=== PATIENT | female | born 1955 | race Two or more races ===

== ENCOUNTER 2021-01-21 09:52 | Outpatient (AMBR) | payer MEDICARE, MEDICAID, SELFPAY ==
--- NOTE | 2020-12-31 08:19 | PT.OIERPT ---
PT OP Initial Eval Patient Information Visit Reasons: low back pain Medical Diagnosis: M54.5 Treatment Dx #1: LBp Date of Onset: 5 yrs Initial Assessment Subjective Pt is 65 yr old nepali speaking female who reports long Hx of LBP on the R side but pain going down the L LE. Increased pain with HH chores such as sweeping and mopping and bending. She isn't working at this time and if she walks more than 10 minutes and she can go shopping if she walks slowly. PMH: CVA x3 yrs, HTN, DM, allergies Imaging: MRI of L/s L5-S1, L4-L5 5 mm central lumbar disc bulges Objective Trunk ArOM: B SB 50% with pain L>R Extension: 20% with pain around L2-3 centrally Flexion: 14 from floor with LBP B rotation: 60% L SLR: 50 deg with posterior knee neural tension, LBP LE strength: B hamstrings: 4-/5 Quads 4-/5 Hip abd/add 4-/5 AZUCENA's: hip tightness TTP: moderate paraspinals L4-5 on R Neuro: L SLR: positive Assessment Pt presents with trunk flexion sensitivity and overlying myofascial pain and spasming around L4-5 on R side. Pt has lumbar extensor atrophy and pain with prolonged standing. These findings are consistent with lower lumbar disc bulges. Pt requires skilled therapy in order to decrease pain and improve standing tolerance and has fair rehab potential. Short Term and Group Home Goals 1. Ind with HEP 2. Improved standing tolerance to 30 minutes with <=4/10 LBP 3. Pt will improve ambulatory distance to 2 city blocks 4. Pt will squat x15 with lumbar lordosis and no increase in LBP Treatment Plan 1. Manual therapy 2. Therex 3. Modalities as indicated, moist heat, ice, estim, mechanical traction Frequency and Duration 2x a week for 6 weeks Certification Dates: 12/31/20 to 03/31/21 Office Procedures PT Treatments PT Date of Service: 12/31/20 OP PT Eval Mod Complex 30 minutes: Yes
--- NOTE | 2021-01-04 13:01 | PTNOTE_ITS ---
PT Outpatient Daily Note Date of Service: 01/04/21 OP Daily Note Visit Reasons: low back pain Outpatient Physical Therapy Treatment Date: 01/04/21 Subjective: Pt points to the R side of the L/s as site of pain Objective: See F/S for therex MT: StM L/s paraspinals x10' Mechanical traction L/s x7' at 35 lbs Assessment: Moderate tissue irritability with manual therapy and transitional movements. Pain with lifting L LE in supine. Plan: continue per POC Office Procedures PT Treatments PT Date of Service: 01/04/21 Therapeutic Exercise 15 minutes: Yes Manual Director Of Retention 15 minutes: Yes PT Treatments PT Date of Service: 12/31/20 OP PT Eval Mod Complex 30 minutes: Yes
--- NOTE | 2021-01-06 13:41 | PT.ODAYNRPT ---
PT Outpatient Daily Note Date of Service: 01/06/21 OP Daily Note Pediatric or Adult Patient: Adult PT >13 Visit Reasons: low back pain Outpatient Physical Therapy Treatment Date: 01/06/21 Subjective: Pt points to the R side of the L/s as site of pain and says the LE goes numb Objective: See F/S for therex MT: StM L/s paraspinals x10' Mechanical traction L/s x7' at 35 lbs Assessment: Moderate tissue irritability with manual therapy and transitional movements. Pain with lifting L LE in supine. Plan: continue per POC Office Procedures PT Treatments PT Date of Service: 01/04/21 Therapeutic Exercise 15 minutes: Yes Manual Manager [employer] 15 minutes: Yes PT Treatments PT Date of Service: 12/31/20 OP PT Eval Mod Complex 30 minutes: Yes PT Treatments PT Date of Service: 01/06/21 Therapeutic Exercise 15 minutes: Yes Manual Manager [employer] 15 minutes: Yes
--- NOTE | 2021-01-11 10:03 | PTNOTE_ITS ---
PT Outpatient Daily Note Date of Service: 01/11/21 OP Daily Note Visit Reasons: low back pain Outpatient Physical Therapy Treatment Date: 01/11/21 Subjective: Pt reports pain on LB and down the L side of her leg today. Pt reports pain level 6/10. Objective: See flow chart for therex. MT: STM w/ graston L/S x 10mins. Mechanical Traction: L/S 40lbs x 7mins. Assessment: Moderate Tissue Irritability to R side of LB w/ MT. Pt had good response to MT and mechanical traction. Pt feeling discomfort w/ SB rolls to L LE. Pt tolerated stretches well w/ out complaints. Plan: Cont POC per PT. Length of Time (minutes) of Treatment: 30 Minutes Office Procedures PT Treatments PT Date of Service: 01/04/21 Therapeutic Exercise 15 minutes: Yes Manual Mental Retardation Nurse 15 minutes: Yes PT Treatments PT Date of Service: 12/31/20 OP PT Eval Mod Complex 30 minutes: Yes PT Treatments PT Date of Service: 01/06/21 Therapeutic Exercise 15 minutes: Yes Manual Mental Retardation Nurse 15 minutes: Yes PT Treatments PT Date of Service: 01/11/21 Therapeutic Exercise 15 minutes: Yes Manual Mental Retardation Nurse 15 minutes: Yes
--- NOTE | 2021-01-14 10:58 | PT.ODAYNRPT ---
PT Outpatient Daily Note Date of Service: 01/14/2021 OP Daily Note Visit Reasons: low back pain Outpatient Physical Therapy Treatment Date: 01/14/21 Subjective: pt came in with back pain. Objective: see flow sheet. Assessment: pt needed assistance with bed mobility from supine to sit. she is able to perform her exercises but with limited mobility. pt feels more comfortable with the HOB elevated due to SOB. pt finished off with traction. pt on traction for L/s for a few mins and she denied increase in back pain. Plan: continue POC per PT. Length of Time (minutes) of Treatment: 30 Minutes Office Procedures PT Treatments PT Date of Service: 01/04/21 Therapeutic Exercise 15 minutes: Yes Manual Dial Polisher 15 minutes: Yes PT Treatments PT Date of Service: 12/31/20 OP PT Eval Mod Complex 30 minutes: Yes PT Treatments PT Date of Service: 01/06/21 Therapeutic Exercise 15 minutes: Yes Manual Dial Polisher 15 minutes: Yes PT Treatments PT Date of Service: 01/11/21 Therapeutic Exercise 15 minutes: Yes Manual Dial Polisher 15 minutes: Yes PT Treatments PT Date of Service: 01/14/21 Traction Mechanical: Yes Therapeutic Exercise 15 minutes: Yes
--- NOTE | 2021-01-18 10:30 | PT.ODAYNRPT ---
PT Outpatient Daily Note Date of Service: 01/18/21 OP Daily Note Visit Reasons: low back pain Outpatient Physical Therapy Treatment Date: 01/18/21 Subjective: Pt sri lankan speaking reports she was having pain from the traction from previous visit and points at her hip flexors. Objective: See flow chart for therex. MT: STM w/ graston x 10 mins. Assessment: Pt tolerated MT w/ good response to L/S. Muscle tension R>L to lumbar paraspinals. Pt able to perform CIRILO for 10 mins during MT w/out complaints. Plan: Cont POC per PT. Length of Time (minutes) of Treatment: 30 Minutes Office Procedures PT Treatments PT Date of Service: 01/04/21 Therapeutic Exercise 15 minutes: Yes Manual Membership Coordinator 15 minutes: Yes PT Treatments PT Date of Service: 12/31/20 OP PT Eval Mod Complex 30 minutes: Yes PT Treatments PT Date of Service: 01/06/21 Therapeutic Exercise 15 minutes: Yes Manual Membership Coordinator 15 minutes: Yes PT Treatments PT Date of Service: 01/11/21 Therapeutic Exercise 15 minutes: Yes Manual Membership Coordinator 15 minutes: Yes PT Treatments PT Date of Service: 01/14/21 Traction Mechanical: Yes Therapeutic Exercise 15 minutes: Yes PT Treatments PT Date of Service: 01/18/21 Therapeutic Exercise 30 minutes: Yes
--- NOTE | 2021-01-21 11:29 | PT.ODAYNRPT ---
PT Outpatient Daily Note Date of Service: 01/21/2021 OP Daily Note Visit Reasons: low back pain Outpatient Physical Therapy Treatment Date: 01/21/21 Subjective: pt states her back was sore for days after L/S traction and refuses to use it again. Objective: see flow sheet. Assessment: pt completed ther ex while on heat. she did have limited ROM during her LTR until I assisted with increasing her ROM. she was able to tolerate the increase in motion as she was cued to relax and when she did she improved her form. Plan: continue POC per PT. Length of Time (minutes) of Treatment: 30 Minutes Office Procedures PT Treatments PT Date of Service: 01/04/21 Therapeutic Exercise 15 minutes: Yes Manual Garbage Truck Driver 15 minutes: Yes PT Treatments PT Date of Service: 12/31/20 OP PT Eval Mod Complex 30 minutes: Yes PT Treatments PT Date of Service: 01/06/21 Therapeutic Exercise 15 minutes: Yes Manual Garbage Truck Driver 15 minutes: Yes PT Treatments PT Date of Service: 01/11/21 Therapeutic Exercise 15 minutes: Yes Manual Garbage Truck Driver 15 minutes: Yes PT Treatments PT Date of Service: 01/14/21 Traction Mechanical: Yes Therapeutic Exercise 15 minutes: Yes PT Treatments PT Date of Service: 01/18/21 Therapeutic Exercise 30 minutes: Yes PT Treatments PT Date of Service: 01/21/21 Therapeutic Exercise 30 minutes: Yes
== END 2021-01-24 23:59 | disposition home or self-care (01) ==
PROVIDERS: PCP Family Medicine; Referring Provider Family Medicine; Visit Provider Nurse Practitioner Family
DX: M54.50 Low back pain, unspecified (principal); M62.830 Muscle spasm of back; I10 Essential (primary) hypertension; E11.9 Type 2 diabetes mellitus without complications
CPT/HCPCS: 97012; 97110; 97140; 97162

== ENCOUNTER → 2024-02-14 | Outpatient (CLI) | payer MEDICARE, MEDICAID, SELFPAY ==
[2024-02-14 08:30] LABS: Basophils % (Auto) 0 % (0-2.5); Eosinophils # (Auto) 0.1 Thou/mm3 (0.0-0.5); Eosinophils % (Auto) 1 % (0-10); Hematocrit 39.8 % (36.0-46.0); Hemoglobin 13.2 g/dL (12.0-16.0); Immature Granulocytes % (Auto) 0 % (0-0); Immature Granulocytes Auto 0.01 Thou/mm3 (0.00-0.00); Lymphocytes # (Auto) 1.2 Thou/mm3 (1.0-4.8); Lymphocytes % (Auto) 20 % (10-50); Mean Corpuscular HGB Conc 33.2 g/dl (31.0-37.0); Mean Corpuscular Hemoglobin 30.5 pg (25.0-35.0); Mean Corpuscular Volume 92 fL (80-100); Monocytes # (Auto) 0.6 Thou/mm3 (0.0-0.8); Monocytes % (Auto) 10 % (0-12); Neutrophils # (Auto) 4.1 Thou/mm3 (1.8-7.7); Neutrophils % (Auto) 68 % (37-80); Nucleated Red Blood Cell % 0 /100 WBC (0); Platelet Count 222 Thou/mm3 (140-440); Red Blood Count 4.33 Miln/mm3 (4.00-5.20)
[2024-02-14 08:46] LABS: B-Type Natriuretic Peptide 366 pg/mL (0-100)
[2024-02-14 08:55] LABS: Alanine Aminotransferase 26 U/L (10-49); Albumin, Serum 3.9 gm/dL (3.4-4.8); Alkaline Phosphatase 87 U/L (46-116); Anion Gap 5 (7-16); Aspartate Amino Transferase 26 U/L (0-34); BUN/Creatinine Ratio 21 Ratio (12-20); Bilirubin,Direct 0.3 mg/dL (0.0-0.3); Bilirubin,Total 0.7 mg/dL (0.3-1.2); Blood Urea Nitrogen 15 mg/dL (9-23); Calcium 9.4 mg/dL (8.3-10.6); Carbon Dioxide 35.1 mMol/L (20.0-31.0); Cardiac Risk Estimate 2.9 RATIO (3.7-5.6); Chloride 101 mMol/L (98-107); Cholesterol 117 mg/dL (132-200); Creatinine (Component) 0.7 mg/dL (0.6-1.3); Glucose 140 mg/dL (74-106); HDL Cholesterol 41 mg/dL (40-60); LDL Cholesterol,Calculated 59 mg/dL (0-130); Osmolality,Calculated 284 (275-295); Phosphorous 4.2 mg/dL (2.4-5.1); Potassium 3.8 mMol/L (3.4-5.1); Sodium 141 mMol/L (136-145); Total Protein 6.7 gm/dL (5.7-8.2); Triglycerides 86 mg/dL (30-150); eGFR > 60 See Note
== END | disposition home or self-care (01) ==
PROVIDERS: PCP Family Medicine; Referring Provider Internal Medicine Cardiovascular Disease; Visit Provider Internal Medicine Cardiovascular Disease
DX: I11.0 Hypertensive heart disease with heart failure (principal); I50.9 Heart failure, unspecified; E78.5 Hyperlipidemia, unspecified
CPT/HCPCS: 36415; 80048; 80061; 80076; 83880; 84100; 85025

== ENCOUNTER → 2024-03-21 | Outpatient (CLI) | payer MEDICARE, MEDICAID, SELFPAY ==
--- NOTE | 2024-03-21 16:15 | XR_ITS ---
Examination: Retroperitoneal ultrasound, complete Technique: Multiple high resolution grayscale images of the retroperitoneum obtained, including kidneys and bladder. Exam date and time:March 21, 2024 1629 hours INDICATIONS: Diagnosis chronic kidney disease stage II FINDINGS: Right kidney 10.7 x 4.5 x 5.2 cm cortex 1.9 cm Left kidney 10.2 x 5.0 x 5.3 cm renal cortex 1.9 cm Moderate bilateral renal parenchymal scar formation No hydronephrosis No bladder mass or bladder calculi Bladder prevoid volume 165 cc postvoid volume 20 cc IMPRESSION: Moderate bilateral renal parenchymal scar formation No hydronephrosis
[2024-03-21 17:39] LABS: Basophils % (Auto) 0 % (0-2.5); Eosinophils # (Auto) 0.1 Thou/mm3 (0.0-0.5); Eosinophils % (Auto) 1 % (0-10); Hematocrit 38.3 % (36.0-46.0); Hemoglobin 12.7 g/dL (12.0-16.0); Immature Granulocytes % (Auto) 0 % (0-0); Immature Granulocytes Auto 0.02 Thou/mm3 (0.00-0.00); Lymphocytes # (Auto) 1.4 Thou/mm3 (1.0-4.8); Lymphocytes % (Auto) 19 % (10-50); Mean Corpuscular HGB Conc 33.2 g/dl (31.0-37.0); Mean Corpuscular Hemoglobin 31.4 pg (25.0-35.0); Mean Corpuscular Volume 95 fL (80-100); Monocytes # (Auto) 0.8 Thou/mm3 (0.0-0.8); Monocytes % (Auto) 10 % (0-12); Neutrophils # (Auto) 5.2 Thou/mm3 (1.8-7.7); Neutrophils % (Auto) 69 % (37-80); Nucleated Red Blood Cell % 0 /100 WBC (0); Platelet Count 231 Thou/mm3 (140-440); Red Blood Count 4.04 Miln/mm3 (4.00-5.20); White Blood Count 7.6 Thou/mm3 (3.6-11.0)
[2024-03-21 17:55] LABS: Parathyroid Hormone Intact 109.6 pg/ml (18.5-88.0)
[2024-03-21 17:56] LABS: Alanine Aminotransferase 30 U/L (10-49); Albumin, Serum 4.1 gm/dL (3.4-4.8); Albumin/Globulin Ratio 1.5 (1.2-2.2); Alkaline Phosphatase 85 U/L (46-116); Anion Gap 4 (7-16); Aspartate Amino Transferase 29 U/L (0-34); BUN/Creatinine Ratio 44 Ratio (12-20); Bilirubin,Total 0.7 mg/dL (0.3-1.2); Blood Urea Nitrogen 31 mg/dL (9-23); Calcium 9.3 mg/dL (8.3-10.6); Calcium (Corrected) 9.3 mg/dL (8.5-10.1); Carbon Dioxide 36.9 mMol/L (20.0-31.0); Chloride 97 mMol/L (98-107); Creatinine (Component) 0.7 mg/dL (0.6-1.3); Globulin 2.7 gm/dL (2.3-3.5); Glucose 109 mg/dL (74-106); Magnesium 2.2 mg/dL (1.6-2.6); Osmolality,Calculated 283 (275-295); Phosphorous 3.9 mg/dL (2.4-5.1); Potassium 3.9 mMol/L (3.4-5.1); Sodium 138 mMol/L (136-145); Total Protein 6.8 gm/dL (5.7-8.2); Uric Acid 4.2 mg/dL (3.1-7.8); eGFR > 60 See Note
[2024-03-21 17:59] LABS: Creatinine MALB Rnd Ur < 13 mg/dL (30-125); Microalbumin, Random Urine < 3 mg/L (0-300)
[2024-03-21 17:59] LABS: Vitamin B12 661 pg/mL (211-911); Vitamin D 25 Hydroxy Total 52.8 ng/mL (7.3-40.2)
[2024-03-21 18:04] LABS: Ferritin 77 ng/mL (7.3-270.7); Total Iron Binding Capacity 296 mcg/dL (250-425)
[2024-03-21 23:00] LABS: Iron 56 mcg/dL (50-170); Percent Iron Saturation 18 % (20-55); Unsaturated Iron Binding 240 (225-295)
== END | disposition home or self-care (01) ==
LOC: CDIM 16:12 → COPL 16:45
PROVIDERS: PCP Nurse Practitioner Family; Referring Provider Internal Medicine Nephrology; Visit Provider Radiology Diagnostic Radiology
DX: N28.89 Other specified disorders of kidney and ureter (principal); N18.2 Chronic kidney disease, stage 2 (mild); D63.1 Anemia in chronic kidney disease; E21.1 Secondary hyperparathyroidism, not elsewhere classified; E55.9 Vitamin D deficiency, unspecified
CPT/HCPCS: 36415; 76770; 80053; 82043; 82306; 82570; 82607; 82728; 83540; 83550; 83735; 83970; 84100; 84550; 85025

== ENCOUNTER → 2024-04-02 | Outpatient (CLI) | payer MEDICARE, MEDICAID, SELFPAY ==
--- NOTE | 2024-04-02 | XR_ITS ---
Examination: Shoulder,right, 3 views Technique: Shoulder AP internal rotation, AP external rotation, Y view shoulder, 3 views Exam date and time :April 02 2024-0 7 hours INDICATIONS: Right shoulder pain and swelling beginning 5 days ago. FINDINGS: Prominent osteopenia Mild calcific tendinitis No shoulder fracture or dislocation Moderate to advanced narrowing glenohumeral joint Incidental note parenchymal disease at the lung bases IMPRESSION: Moderate to advanced narrowing glenohumeral joint Recommend repeat PA lateral chest compared with the February 01, 2024 exam
== END | disposition home or self-care (01) ==
PROVIDERS: PCP Nurse Practitioner Family; Referring Provider Nurse Practitioner Family; Visit Provider Nurse Practitioner Family
DX: M25.811 Other specified joint disorders, right shoulder (principal)
CPT/HCPCS: 73030

== ENCOUNTER → 2024-05-09 | Outpatient (CLI) | payer OTHER, MEDICAID, SELFPAY ==
--- NOTE | 2024-05-09 13:30 | XR_ITS ---
Examination: Arterial duplex lower extremity study. Date and time of exam: May 09, 2024 1402 hours INDICATIONS: Bilateral leg discoloration several months left leg numbness several weeks Findings: Duplex sonographic imaging of the lower extremity arteries using B-mode/Estrada scale imaging and Doppler spectral analysis and color flow. Ankle brachial indices have been recorded. Right common femoral artery demonstrates triphasic flow. Right superficial femoral artery demonstrates triphasic flow. Right popliteal artery demonstrates triphasic flow. Right posterior tibial artery demonstrated triphasic flow. Right ankle/brachial index is 0.8. Left common femoral artery demonstrates triphasic flow. Left superficial femoral artery demonstrates triphasic flow. Left popliteal artery demonstrates triphasic flow. Left posterior tibial artery demonstrated triphasic flow. Left ankle/brachial index is 1.0. Impression: Significant right flank obstructive arterial disease, consider correlation with CTA abdominal aorta iliofemoral runoff post intravenous contrast
== END | disposition home or self-care (01) ==
PROVIDERS: PCP Nurse Practitioner Family; Referring Provider Nurse Practitioner Family; Visit Provider Nurse Practitioner Family
DX: I77.89 Other specified disorders of arteries and arterioles (principal)
CPT/HCPCS: 93925

== ENCOUNTER → 2024-06-03 | Outpatient (CLI) | payer OTHER, MEDICAID, SELFPAY ==
--- NOTE | 2024-06-03 10:30 | XR_ITS ---
Examination: CTA abdominal aorta iliofemoral runoff. 2-D sagittal coronal reconstructions. 3-D reconstructions, vascular June 03, 2024 1113 hrs. Indications: Lower leg pain and swelling beginning 2 months ago Technique: Multiple CTA images of the abdominal aorta iliofemoral runoff arterial vessels, 2.0 mm slice thickness, post intravenous administration 130 cc [id number] 2-D sagittal coronal reconstructions. 3-D reconstructions, vascular 3-D postprocessing, including vascular maximum intensity projection images, 3-D volume rendering Low dose protocols were performed. One or more of the following dose reduction techniques were used; automated exposure control, adjustment of the mA and/or KV according to patient size, use of iterative reconstruction technique. Findings: Prominent enlargement cardiac contour No focal liver or splenic lesions No gallstones No pancreatic or adrenal mass Significant renal parenchymal scar formation No bowel obstruction Normal appendix Colonic diverticulosis Left pelvic wall fat-containing hernia defect 22 mm Atrophic uterus Vaginal pessary Contracted urinary bladder with significant wall thickening Abdominal aortic calcification no aneurysmal dilatation No significant stenoses common iliac and external iliac or common femoral arteries Right and left superficial femoral arteries popliteal arteries are intact Bilateral main continuation trunk is anterior tibial posterior tibial arteries to the ankles Impression: No significant obstructive arterial disease in the lower extremities.
== END | disposition home or self-care (01) ==
LOC: CCTX 10:32
PROVIDERS: Referring Provider Nurse Practitioner Family; Visit Provider Nurse Practitioner Family
DX: R20.0 Anesthesia of skin (principal)
CPT/HCPCS: 75635; A4649; Q9967

== ENCOUNTER → 2024-09-16 | Outpatient (CLI) | payer OTHER, MEDICAID, SELFPAY ==
--- NOTE | 2024-09-16 16:51 | XR_ITS ---
Examination: Bilateral knees 4 views TECHNIQUE: AP lateral right and left knees total 4 views Date and time: September 16, 2024 1701 hours INDICATIONS: Bilateral knee pain several years. FINDINGS: Bilateral moderate to advanced tricompartment osteoarthritis, most severe involving the medial joint spaces and patellofemoral joints No fractures Moderate osteopenia IMPRESSION: Bilateral moderate to advanced tricompartment osteoarthritis
== END | disposition home or self-care (01) ==
PROVIDERS: PCP Nurse Practitioner Family; Referring Provider Nurse Practitioner Family; Visit Provider Nurse Practitioner Family
DX: M17.0 Bilateral primary osteoarthritis of knee (principal)
CPT/HCPCS: 73560

== ENCOUNTER → 2024-09-26 | Outpatient (CLI) | payer OTHER, MEDICAID, SELFPAY ==
--- NOTE | 2024-09-26 14:55 | XR_ITS ---
Examination: CT brain head without contrast. 2-D sagittal coronal reconstructions Date and time of exam:September 26, 2024 1604 hours INDICATIONS: Paresthesias and numbness in the right upper extremity beginning 8 days ago CTDI: vol (mGy):46.7 DLP: (mGycm):916 Technique: Multiple CT axial sections of the brain have been obtained, 5 mm slice thickness. Contrast has not been administered. 2-D sagittal, coronal reconstructions have been obtained Low dose protocols were performed. One or more of the following dose reduction techniques were used; automated exposure control, adjustment of the mA and/or KV according to patient size, use of iterative reconstruction technique. Findings: No significant ventricular enlargement. Old appearing infarct right occipital lobe right cerebellar hemisphere Intra-axial or extra-axial hemorrhage density is not seen. No mass effect or midline shift Basal cisterns are not remarkable. Fourth ventricle is midline. Cranial vault intact. Impression: Negative for acute hemorrhage, mass effect or midline shift If symptoms persist, as clinically warranted, brain MRI follow-up would best assess for acute ischemic change
== END | disposition home or self-care (01) ==
LOC: CCTX 14:29
PROVIDERS: PCP Family Medicine; Referring Provider Nurse Practitioner Family; Visit Provider Nurse Practitioner Family
DX: R20.2 Paresthesia of skin (principal)
CPT/HCPCS: 70450

== ENCOUNTER 2024-10-29 13:03 | Outpatient (AMB) | payer OTHER, MEDICAID, SELFPAY ==
[2024-10-29 13:33] VITALS: BP 129/86; PULSE 80; RESP 18; TEMP 36.4; O2SAT 91; BMI 33.0
--- NOTE | 2024-10-29 13:33 | PD.ORTHCLVIS ---
Vital signs 10/29/24 13:33 Height 1.68 m Height Method Stated Weight 93.043 kg Weight Measurement Method Standing Scale BMI 33.0 BP 129/86 H Blood Pressure Source Automatic Cuff Blood Pressure Location Left Upper Arm Position Sitting Respiration 18 Pulse 80 Pulse Source Monitor Temp 97.6 F Temp Source Temporal Artery Scan Pulse Oximetry (%) 91 L Oxygen Delivery Method Room Air Med/Allergies Allergies & Medications Allergies hydrocodone Allergy (Intermediate, Verified 10/29/24 13:34) RESP. DISTRESS Penicillins Allergy (Intermediate, Verified 10/29/24 13:34) Rash ibuprofen Allergy (Mild, Verified 10/29/24 13:34) Rash paroxetine Allergy (Unknown, Verified 10/29/24 13:34) UNKNOWN amlodipine Allergy (Verified 10/29/24 13:34) Swelling of face potassium chloride (From K-Sada) Allergy (Verified 10/29/24 13:34) Gastrointestinal Upset milk Adverse Reaction (Mild, Verified 10/29/24 13:34) ABDOMINAL PAIN Medication Reconciliation nitroglycerin 0.4 mg sublingual tablet (Nitrostat) 0.4 mg SL PRN PRN CHEST PAIN #0 tabs 05/07/15 [History Confirmed 10/29/24] apixaban 5 mg tablet (Eliquis) 5 mg PO QDAY #0 tabs 09/15/16 [History Confirmed 10/29/24] furosemide 20 mg tablet (Lasix) 40 mg PO QDAY #0 tabs 09/15/16 [History Confirmed 10/29/24] isosorbide dinitrate 30 mg tablet 30 mg PO QDAY #0 tabs 09/15/16 [History Confirmed 10/29/24] folic acid 1 mg tablet 1 mg PO QDAY 07/24/19 [History Confirmed 10/29/24] atorvastatin 10 mg tablet 10 mg PO QDAY 12/27/21 [History Confirmed 10/29/24] diltiazem HCl 120 mg capsule,extended release 12 hr 120 mg PO BID 12/27/21 [History Confirmed 10/29/24] losartan 100 mg tablet 100 mg PO QDAY 12/27/21 [History Confirmed 10/29/24] carvedilol 6.25 mg tablet 6.25 mg PO BID 04/18/22 [History Confirmed 10/29/24] citalopram 20 mg tablet 20 mg PO QDAY 04/18/22 [History Confirmed 10/29/24] Exam Exam Patient is in no acute distress and is cooperative with the examination today. Breathing is nonlabored. In no respiratory distress. Bilateral extremities were evaluated and demonstrates sensation intact to light touch. Palpable pedal pulses are present. No significant edema is present. Bilateral hips were examined. The patient has no pain with log roll of the hips. Internal rotation to 30 degrees and external rotation to 30 degrees is painless. Negative FADIR. The left knee was examined. The left knee is in varus alignment. Range of motion from 0-115 degrees. Knee is stable to varus and valgus as well as AP translation with <5mm. Patient has a negative McMurrays. There is no pain with patellofemoral compression and no crepitus noted. The knee is tender to palpation medially. The right knee was also examined. The right knee is in varus alignment. Range of motion from 0-120 degrees. Knee is stable to varus and valgus as well as AP translation with <5mm. Patient has a negative McMurrays. There is no pain with patellofemoral compression and no crepitus noted. The knee is tender to palpation medially. Nonweightbearing x-rays demonstrate complete joint space obliteration of the medial compartment of both knees with significant osteophytes Assessment and Plan Problem List (1) Degenerative arthritis of knee, bilateral: Status: Acute Plan: Patient is a 69-year-old female with bilateral knee pain and bilateral knee arthritis. We discussed different treatment options. We will get her set up for injections. She will need authorization for it. I also gave her follow-up for cardiac clearance from her retail advertising executive. It does not sound like they will clear her at this time Advanced Care Planning Discussion Advance care planning discussed with:: patient Office Procedures GNS Level of Care Nursing/Assessment Patient Status: Initial/New Patient Nursing Assessment/Reassesment: Medication Reconciliation, Update PMH in EMR and Vital Signs Coordination of Care: Complex Care and Chronic Disease 1-5, Education Complex Pt/Fam, Consent,records obtained, informed consent, 1 Ins Authorization, Lab and Imaging orders, Results/Orders obtained and Staff clarify orders Special Needs: Language special needs New Patient Charge New Patient Point Assignment: 1124 New Patient Point Charge: SCREENPLAY WRITER Level 4 ([id number]) MA Intake Visit Data Collection New Patient or Established: New Patient (never been to [facility]) Reason for Visit:: BILATERAL KNEE PAIN Seen by Clinical Staff ONLY (RN/MA): No Pattern Wheel Maker Required: Yes PCP or OBGYN visit in last 3 months: Yes Hx Now: No Do You Feel Safe at Home: Yes Authorities Contacted: N/A Questionairres Past Medical History Past Medical History Have you ever been diagnosed with any of the following: Neurological Problems Transient Ischemic Attacks (TIA): Yes (Left sided weakness) Seizures: No Cardiology Problems Myocardial Infarction: Yes Atrial Fibrillation: Yes Hypercholesterolemia: Yes Congestive Heart Failure: No Edema: Yes (BLE) Hypertension: Yes Respiratory Problems Chronic Obstructive Pulmonary Disease (COPD): No Smoking: No Smoking Cessation Counseling: No Smoking Exposure: No Stomache/Intestinal Problems Obesity: Yes Genital/Urinary Problems Renal Disease: No Reproductive Problems Pelvic Inflammatory Disease: No Previous Pregnancies: Yes Musculoskeletal Problems Arthritis: Yes Endocrine Problems Diabetes Mellitus Type 1: No Diabetes Mellitus Type 2: Yes Blood Problems Anemia: No Other Problems Hospitalization: No Falls: No Blood Transfusions: No Anesthesia Reactions: No Cancer: No Subjective Visit Visit for: new patient and knee (BILATERAL) Immunization / Flu Flu Vaccine in the Last 12 Months: No Flu Vaccine Exclusion Criteria: No Exclusion Criteria History of Present Illness Chief complaint: LEFT KNEE WORSE THAN RIGHT PAIN is a pleasant 69-year-old female with bilateral knee pain. This been ongoing for quite a while. She has a history of heart issues and A-fib. The pain is affecting her quality life and happiness. She has had over 5 injections. She was told by her retail advertising executive recently that surgery would not be a great option. If we were to proceed with surgery, I would want to get cardiac clearance. Personal History Occupation: RETIRED Pain Pain level (0-10): 7 Pain duration: ALL DAY Pain location: inside (medial), outside (lateral), anterior and posterior Pain quality: sharp, dull, aching, burning and shocking Pain timing: night, increases with activity and stairs Associated signs & symptoms: numbness Ambulatory data Ambulatory device: none Treatments Number of previous injections: 4 Improvement with previous injections: No Improvement with PT: No Improvement with NSAIDS: no Review of Systems Review of Systems: All systems negative unless otherwise noted in HPI.
--- NOTE | 2024-10-29 13:54 | XR_ITS ---
Examination: Bilateral knees 2 views Right lateral knee left lateral knee 2 views Bilateral axial knee single view Date and time: October 29, 2024 1422 hours TECHNIQUE: Bilateral AP knees standing single view, bilateral PA knee standing single view flexion Standing bilaterally left lateral knee 2 views Bilateral axial knee single view total 5 views FINDINGS: Severe narrowing medial joint spaces bilaterally, [id number] right knee Moderate osteopenia Bilateral moderate to advanced osteoarthritis patellofemoral joints No fractures IMPRESSION: Severe narrowing medial joint spaces bilaterally, [id number] right knee
== END 2024-10-29 13:53 | disposition home or self-care (01) ==
LOC: HODSRG 13:03
PROVIDERS: PCP Family Medicine; Referring Provider Family Medicine; Supervising Provider Orthopaedic Surgery Adult Reconstructive Orthopaedic Surgery; Visit Provider Orthopaedic Surgery Adult Reconstructive Orthopaedic Surgery
DX: M17.0 Bilateral primary osteoarthritis of knee (principal); M25.562 Pain in left knee; M25.561 Pain in right knee; I10 Essential (primary) hypertension; E78.00 Pure hypercholesterolemia, unspecified; I48.91 Unspecified atrial fibrillation; I25.2 Old myocardial infarction; E11.9 Type 2 diabetes mellitus without complications
CPT/HCPCS: 73564; 99204; G0463

== ENCOUNTER 2024-11-19 09:32 | Outpatient (AMB) | payer OTHER, MEDICAID, SELFPAY ==
--- NOTE | 2024-11-19 10:08 | PD.ORTHCLVIS ---
Vital signs 11/19/24 10:09 Height 1.68 m Height Method Stated Weight 93.667 kg Weight Measurement Method Standing Scale BMI 33.2 BP 125/82 Blood Pressure Source Automatic Cuff Blood Pressure Location Left Upper Arm Position Sitting Respiration 18 Pulse 85 Pulse Source Monitor Temp 98.0 F Temp Source Temporal Artery Scan Pulse Oximetry (%) 90 L Oxygen Delivery Method Room Air Med/Allergies Allergies & Medications Allergies hydrocodone Allergy (Intermediate, Verified 11/19/24 10:09) RESP. DISTRESS Penicillins Allergy (Intermediate, Verified 11/19/24 10:09) Rash ibuprofen Allergy (Mild, Verified 11/19/24 10:09) Rash paroxetine Allergy (Unknown, Verified 11/19/24 10:09) UNKNOWN amlodipine Allergy (Verified 11/19/24 10:09) Swelling of face potassium chloride (From K-Sada) Allergy (Verified 11/19/24 10:09) Gastrointestinal Upset milk Adverse Reaction (Mild, Verified 11/19/24 10:09) ABDOMINAL PAIN Medication Reconciliation nitroglycerin 0.4 mg sublingual tablet (Nitrostat) 0.4 mg SL PRN PRN CHEST PAIN #0 tabs 05/07/15 [History Confirmed 11/19/24] apixaban 5 mg tablet (Eliquis) 5 mg PO QDAY #0 tabs 09/15/16 [History Confirmed 11/19/24] furosemide 20 mg tablet (Lasix) 40 mg PO QDAY #0 tabs 09/15/16 [History Confirmed 11/19/24] isosorbide dinitrate 30 mg tablet 30 mg PO QDAY #0 tabs 09/15/16 [History Confirmed 11/19/24] folic acid 1 mg tablet 1 mg PO QDAY 07/24/19 [History Confirmed 11/19/24] atorvastatin 10 mg tablet 10 mg PO QDAY 12/27/21 [History Confirmed 11/19/24] diltiazem HCl 120 mg capsule,extended release 12 hr 120 mg PO BID 12/27/21 [History Confirmed 11/19/24] losartan 100 mg tablet 100 mg PO QDAY 12/27/21 [History Confirmed 11/19/24] carvedilol 6.25 mg tablet 6.25 mg PO BID 04/18/22 [History Confirmed 11/19/24] citalopram 20 mg tablet 20 mg PO QDAY 04/18/22 [History Confirmed 11/19/24] Exam Exam Patient is in no acute distress and is cooperative with the examination today. Breathing is nonlabored. In no respiratory distress. Bilateral extremities were evaluated and demonstrates sensation intact to light touch. Palpable pedal pulses are present. No significant edema is present. Bilateral hips were examined. The patient has no pain with log roll of the hips. Internal rotation to 30 degrees and external rotation to 30 degrees is painless. Negative FADIR. The left knee was examined. The left knee is in varus alignment. Range of motion from 0-115 degrees. Knee is stable to varus and valgus as well as AP translation with <5mm. Patient has a negative McMurrays. There is no pain with patellofemoral compression and no crepitus noted. The knee is tender to palpation medially. The right knee was also examined. The right knee is in varus alignment. Range of motion from 0-120 degrees. Knee is stable to varus and valgus as well as AP translation with <5mm. Patient has a negative McMurrays. There is no pain with patellofemoral compression and no crepitus noted. The knee is tender to palpation medially. Nonweightbearing x-rays demonstrate complete joint space obliteration of the medial compartment of both knees with significant osteophytes Assessment and Plan Problem List (1) Degenerative arthritis of knee, bilateral: Status: Acute Plan: Patient is a 69-year-old female with bilateral knee pain and bilateral knee arthritis. We discussed different treatment options. Recommend knee cortisone injection as patient would like to proceed with conservative treatment at this time. The risks and benefits of the procedure were reviewed with the patient and patient gave verbal consent to continue with the procedure. Procedure: performed by Dr. Soto Using sterile technique the left knee was thoroughly prepped with alcohol, and approximately 1 cc of Depo-Medrol 80mg/mL and 4 cc of 0.2% ropivacaine was injected without resistance into the medial tibial femoral joint space. The patient tolerated the procedure. Recommend knee cortisone injection as patient would like to proceed with conservative treatment at this time. The risks and benefits of the procedure were reviewed with the patient and patient gave verbal consent to continue with the procedure. Procedure: performed by Dr. Soto Using sterile technique the Right knee was thoroughly prepped with alcohol, and approximately 1 cc of Depo-Medrol 80mg/mL and 4 cc of 0.2% ropivacaine was injected without resistance into the medial tibial femoral joint space. The patient tolerated the procedure. Advanced Care Planning Discussion Advance care planning discussed with:: patient Office Procedures GNS Level of Care Nursing/Assessment Patient Status: Established Patient Nursing Assessment/Reassesment: Medication Reconciliation, Update PMH in EMR and Vital Signs Coordination of Care: Complex Care and Chronic Disease 1-5, Education Complex Pt/Fam, Consent,records obtained, informed consent, Results/Orders obtained and Staff clarify orders Special Needs: Language special needs Established Patient Charge Established Patient Point Assignment: 95 Established Patient Point Charge: EP Level 3 (80-115) Surgical Proc/IM SQ injection Major Surgical Procedure: Yes (BILATERAL KNEE INJECTION) Medication Given Medication Given Medication Given: Yes Documented Dose Given: 1 Route: Infiitration Medication Given Medication Given Medication Given: Yes Documented Dose Given: 1 Route: Infiitration Medication Given Medication Given Medication Given: Yes Documented Dose Given: 4 Route: Infiitration Medication Given Medication Given Medication Given: Yes Documented Dose Given: 4 Route: Infiitration Office Meds methylprednisolone acetate 80 mg/mL suspension for injection Performing Provider: Colby Soto MD Performing Location: [facility] Administered by: Colby Soto MD on 11/19/24 11:11 Dose Route Admin Location Dispensed Lot Number Expiration Date [facility] [employer] 80 mg intra-articular 1 mL [id number] 04/25/26 9635-9368-50 [facility] methylprednisolone acetate 80 mg/mL suspension for injection Performing Provider: Colby Soto MD Performing Location: [facility] Administered by: Colby Soto MD on 11/19/24 11:11 Dose Route Admin Location Dispensed Lot Number Expiration Date [facility] [employer] 80 mg intra-articular 1 mL [id number] 08/23/26 [address]-8 [employer] ropivacaine (PF) 2 mg/mL (0.2 %) injection solution Performing Provider: Colby Soto MD Performing Location: [facility] Administered by: Colby Soto MD on 11/19/24 11:11 Dose Route Admin Location Dispensed Lot Number Expiration Date [facility] [employer] 20 mL Infiltration 20 mL [id number] 04/25/27 63904-323-44 [facility] ropivacaine (PF) 2 mg/mL (0.2 %) injection solution Performing Provider: Colby Soto MD Performing Location: [facility] Administered by: Colby Soto MD on 11/19/24 11:11 Dose Route Admin Location Dispensed Lot Number Expiration Date [facility] [employer] 20 mL Infiltration 20 mL [id number] 04/25/27 56069-192-52 [facility] Intake Visit Data Collection New Patient or Established: Established Patient (seen at [facility] within 3 years) Reason for Visit:: BILATERAL KNEE PAIN Seen by Clinical Staff ONLY (RN/MA): No 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 PCP or OBGYN visit in last 3 months: Yes Hx Now: No Do You Feel Safe at Home: Yes Authorities Contacted: N/A Questionairres Past Medical History Past Medical History Have you ever been diagnosed with any of the following: Neurological Problems Transient Ischemic Attacks (TIA): Yes (Left sided weakness) Seizures: No Cardiology Problems Myocardial Infarction: Yes Atrial Fibrillation: Yes Hypercholesterolemia: Yes Congestive Heart Failure: No Edema: Yes (BLE) Hypertension: Yes Respiratory Problems Chronic Obstructive Pulmonary Disease (COPD): No Smoking: No Smoking Cessation Counseling: No Smoking Exposure: No Stomache/Intestinal Problems Obesity: Yes Genital/Urinary Problems Renal Disease: No Reproductive Problems Pelvic Inflammatory Disease: No Previous Pregnancies: Yes Musculoskeletal Problems Arthritis: Yes Endocrine Problems Diabetes Mellitus Type 1: No Diabetes Mellitus Type 2: Yes Blood Problems Anemia: No Other Problems Hospitalization: No Falls: No Blood Transfusions: No Anesthesia Reactions: No Cancer: No Subjective Visit Visit for: follow up visit Immunization / Flu Flu Vaccine in the Last 12 Months: No Flu Vaccine Exclusion Criteria: No Exclusion Criteria History of Present Illness Chief complaint: LEFT KNEE WORSE THAN RIGHT PAIN is a pleasant 69-year-old female with bilateral knee pain. This been ongoing for quite a while. She has a history of heart issues and A-fib. The pain is affecting her quality life and happiness. She has had over 5 injections. 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 If we were to proceed with surgery, I would want to get cardiac clearance. Personal History Occupation: RETIRED Pain Pain level (0-10): 7 Pain duration: ALL DAY Pain location: inside (medial), outside (lateral), anterior and posterior Pain quality: sharp, dull, aching, burning and shocking Pain timing: night, increases with activity and stairs Associated signs & symptoms: numbness Ambulatory data Ambulatory device: none Treatments Number of previous injections: 4 Improvement with previous injections: No Improvement with PT: No Improvement with NSAIDS: no Review of Systems Review of Systems: All systems negative unless otherwise noted in HPI.
[2024-11-19 10:09] VITALS: BP 125/82; PULSE 85; RESP 18; TEMP 36.7; O2SAT 90; BMI 33.2
== END 2024-11-19 11:02 | disposition home or self-care (01) ==
LOC: HODSRG 09:32
PROVIDERS: PCP Family Medicine; Referring Provider Family Medicine; Supervising Provider Orthopaedic Surgery Adult Reconstructive Orthopaedic Surgery; Visit Provider Orthopaedic Surgery Adult Reconstructive Orthopaedic Surgery
DX: M17.0 Bilateral primary osteoarthritis of knee (principal); M25.562 Pain in left knee; M25.561 Pain in right knee; I10 Essential (primary) hypertension; E78.00 Pure hypercholesterolemia, unspecified; I48.91 Unspecified atrial fibrillation; I25.2 Old myocardial infarction; E11.9 Type 2 diabetes mellitus without complications
CPT/HCPCS: 20610; 99213; J1010; J2795; G0463

== ENCOUNTER → 2025-01-15 | Outpatient (CLI) | payer OTHER, MEDICAID, SELFPAY ==
--- NOTE | 2025-01-15 09:45 | XR_ITS ---
Examination: Screening digital mammography, bilateral Computer aided detection 3-D breast Tomosynthesis, bilateral Date and time of exam: January 15, 2025, 0915 hours, compared to mammograms dating to 12/11/2018 Indication: Screening Technique: Nonmagnified MLO, CC views of the breasts to been obtained, reconstructed from 3-D Tomosynthesis images. R2 computer aided detection program utilized for evaluation of suspicious masses and/or abnormal calcifications. 3-D Tomosynthesis images obtained. Findings: Scattered areas of fibroglandular density. Bilateral skin lesions Benign calcifications. 6 mm circumscribed nodule retroareolar region left breast Impression: BI-RADS Category 0: Incomplete: Need additional imaging evaluation Recommend follow-up spot tomographic views of 6 mm circumscribed nodule retroareolar region left breast as well as left breast sonography to complete the work-up.
== END | disposition home or self-care (01) ==
LOC: CDIM 09:00
PROVIDERS: PCP Nurse Practitioner Family; Referring Provider Nurse Practitioner Family; Visit Provider Nurse Practitioner Family
DX: Z12.31 Encounter for screening mammogram for malignant neoplasm of breast (principal); N63.42 Unspecified lump in left breast, subareolar
CPT/HCPCS: 77063; 77067

== ENCOUNTER → 2025-01-17 | Outpatient (CLI) | payer OTHER, MEDICAID, SELFPAY ==
--- NOTE | 2025-01-17 09:38 | XR_ITS ---
Examination: CTA abdominal aorta iliofemoral runoff. 2-D sagittal coronal reconstructions. 3-D reconstructions, vascular January 17, 2025, 1053 hours, comparison June 03, 2024 INDICATIONS: Lower leg swelling and pain beginning 7 months ago Technique: Multiple CTA images of the abdominal aorta iliofemoral runoff arterial vessels, 2.0 mm slice thickness, post intravenous administration 100 cc [id number] 2-D sagittal coronal reconstructions. 3-D reconstructions, vascular 3-D postprocessing, including vascular maximum intensity projection images, 3-D volume rendering Low dose protocols were performed. One or more of the following dose reduction techniques were used; automated exposure control, adjustment of the mA and/or KV according to patient size, use of iterative reconstruction technique. Findings: Marked enlargement cardiac contour including very prominent left atrium No visualized liver or splenic lesion Inferior vena cava is dilated seen with heart failure No pancreatic mass Scarring both kidneys No bowel obstruction No gallstones Colonic diverticulosis Atrophic uterus Contracted urinary bladder Abdominal aortic calcification no aneurysmal dilatation No critical stenoses involving origins of the celiac superior mesenteric axes or renal arteries No stenoses, significant involving the common iliac external iliac or common femoral arteries No significant stenoses superficial femoral arteries or popliteal arteries Trifurcation arteries below the knees bilaterally fill to the ankle including filling of the dorsalis pedis arteries IMPRESSION: No significant arterial stenoses.
== END | disposition home or self-care (01) ==
PROVIDERS: PCP Nurse Practitioner Family; Referring Provider Nurse Practitioner Family; Visit Provider Nurse Practitioner Family
DX: R60.0 Localized edema (principal)
CPT/HCPCS: 75635; A4649; Q9967